=== PATIENT | female | born 1950 | race Two or more races ===

== ENCOUNTER 2022-05-01 16:59 | Inpatient (IN) | payer OTHER ==
[~2022-05-01] VITALS: Ht 162.6 cm; Wt 56.7 kg
[2022-05-06] MEDS ORDERED: PHENOBARBITAL32.4 MG PO (12:58)
[2022-05-06] MEDS ORDERED: DILANTIN30 MG PO (12:59)
[2022-05-06] MEDS ORDERED: [UNRECOGNIZED DRUG - CODE] PO (13:00)
[2022-05-06] MEDS ORDERED: VITAMIN D-40010 MCG PO (13:01)
[2022-05-08] MEDS ORDERED: VITAMIN D350 MC4 (11:53)
[2022-05-08] MEDS ORDERED: VITAMIN D350 MCG (11:53)
[2022-05-08] MEDS ORDERED: SIMVASTATIN20 MG (11:53)
[2022-05-08] MEDS ORDERED: ALENDRONATE SOD70 MG (15:33)
[2022-05-08] MEDS ORDERED: CYANOCOBAL1000 MCG/1 (15:34)
== END 2022-05-09 16:38 | disposition home or self-care (01) | DRG 349 ==
LOC: O/R 05-08 08:45 → SURH 05-08 08:45
PROVIDERS: ADMIT Surgery; ATTEND Surgery
PROC: 0DBP7ZZ Excision of Rectum, Via Natural or Artificial Opening (ICD-10-PCS; principal; 2022-05-08 08:45)
DX: C20 Malignant neoplasm of rectum (principal); D12.8 Benign neoplasm of rectum; K62.82 Dysplasia of anus; Z20.822 Contact with and (suspected) exposure to COVID-19